=== PATIENT | female | born 1975 | race Caucasian/White ===

== ENCOUNTER 2017-04-29 17:43 | Emergency (ER) | payer MEDICARE ==
[~2017-04-29] VITALS: Ht 167.6 cm; Wt 86.6 kg
--- NOTE | 2017-04-29 18:43 | PHYS DOC ---
Past History Past Medical History: Anxiety, Depression, Renal Failure, Other Past Medical History Fibrmyalgia; migraines Past Surgical History: Appendectomy, Cholecystectomy, Hysterectomy, Other Smoking: Cigarettes Alcohol Use: None Drug Use: None Adult General Chief Complaint Chief Complaint: COUGH HPI HPI Patient is a 42 year old female who presents with cough. She states the cough has been present "for at least a week." She feels "hot and sweaty in my house" but no fever documented. She has had no recent travel. She is disabled due to fibromyalgia and migraines. She noted today 4 watery stools. She has occasional blood in her urine "but I've had that before" but then she noticed some burning today with urination. Her spouse was ill a week prior to her. She has not seen her PCP yet. Review of Systems Review of Systems Constitutional: Feels feverish Eyes: Denies change in visual acuity, redness, or eye pain HENT: Denies nasal congestion or sore throat Respiratory: see HPI Cardiovascular: no chest pain with this episode GI: Denies abdominal pain, nausea, vomiting, bloody stools. Some diarrhea just today : Some dysuria or hematuria Musculoskeletal: Denies back pain or joint pain Integument: Denies rash or skin lesions Neurologic: Denies headache, focal weakness or sensory changes Allergies Allergies Allergies Coded Allergies Type Severity Reaction Last Updated Verified No Known Drug Allergies 11/03/14 No Physical Exam Physical Exam Constitutional: Well developed, well nourished, no acute distress, non-toxic appearance.Heavy smell of tobacco on patient. HENT: Normocephalic, atraumatic, TM clear bilaterally; bilateral external ears normal, oropharynx moist, no oral exudates, nose normal. Eyes: PERRLA, EOMI, conjunctiva normal, no discharge. Neck: Normal range of motion, no tenderness, supple, no stridor. Cardiovascular:Heart rate regular rhythm, no murmur Lungs & Thorax: Bilateral breath sounds clear to auscultation. No rales, rhonchi or wheezing Abdomen: Bowel sounds normal, soft, no tenderness, no masses, no pulsatile masses. Skin: Warm, dry, no erythema, no rash. Back: No tenderness, no CVA tenderness. Extremities: No tenderness, no cyanosis, no clubbing, ROM intact, no edema. Neurologic: Alert and oriented X 3, normal motor function, normal sensory function, no focal deficits noted. Psychologic: Affect normal, judgement normal, mood normal. Current Patient Data Vital Signs Vital Signs Date Time Temp Pulse Resp B/P (MAP) Pulse Ox O2 Delivery O2 Flow Rate FiO2 04/29/17 17:58 97.3 108 18 99 Room Air Lab Results Laboratory Tests Test 04/29/17 18:30 Urine Collection Type Unknown Urine Color Yellow Urine Clarity Hazy Urine pH 7.0 Urine Specific Reliance 1.020 Urine Protein Neg Urine Glucose (UA) Neg mg/dL Urine Ketones (Stick) Neg mg/dL Urine Blood Small Urine Nitrite Neg Urine Bilirubin Neg Urine Urobilinogen Dipstick 1 mg/dL Urine Leukocyte Esterase Neg Urine RBC 3-5 /HPF Urine WBC 1-4 /HPF Urine Squamous Epithelial Cells Many /LPF Urine Bacteria 0 /HPF Urine Mucus Marked /LPF Influenza Type A (Rapid) Negative Influenza Type B (Rapid) Negative Current Medications Medications (Trade) Dose Ordered Sig/Beau Route PRN Reason Start Time Stop Time Status Last Admin Dose Admin Ondansetron HCl (Zofran) 4 mg PRN Q4HRS PRN IV NAUSEA/VOMITING 04/29/17 19:15 04/30/17 19:14 UNV Morphine Sulfate (Morphine 2mg Syringe) 2 mg PRN Q2HR PRN IV PAIN 04/29/17 19:15 04/30/17 19:14 UNV Nitroglycerin (Nitrostat) 0.4 mg PRN Q5MIN PRN SL CHEST PAIN 04/29/17 19:15 04/30/17 19:14 UNV Nitroglycerin (Nitro-Bid Oint) 1 inch Q8HRS TP 04/29/17 22:00 UNV Radiology/Procedures Radiology/Procedures CXR interpreted by myself at 1845 PM: no infiltrates; normal cardiac silhouette ; no pleural effusions; normal vasculature Course & Med Decision Making Course & Med Decision Making Evaluated patient upon my arrival on shift at 1800 PM. At 1930 PM influenza negative and UA unremarkable. No evidence of bacterial infection noted. Appears viral in etiology with the loose stool starting today. Home w Zofran rx. Dragon Disclaimer Dragon Disclaimer This chart was dictated in whole or in part using Voice Recognition software in a busy, high-work load, and often noisy Emergency Department environment. It may contain unintended and wholly unrecognized errors or omissions. Departure Departure: Impression: Primary Impression: Viral syndrome Disposition: HOME, SELF-CARE Condition: GOOD Referrals: ROBBY PERLA MD (PCP) Patient Instructions: Cough, Adult Scripts Ondansetron (ZOFRAN ODT) 8 Mg Tab.rapdis 8 MG PO PRN Q6-8HRS Y for NAUSEA for 7 Days Prov: ELENI OSORIO MD 04/29/17 ELENI OSORIO MD Apr 29, 2017 18:43
[2017-04-29 19:14] LABS: BILIRUBIN,URINE NEG (NEG); CLARITY,URINE HAZY; COLOR,URINE YELLOW; GLUCOSE,URINE NEG (NEG); NITRITE,URINE NEG (NEG); UROBILINOGEN,URINE 1 mg/dL (0.2 mg/dL)
[2017-04-29 19:15] LABS: BACTERIA,URINE 0 /HPF (0-FEW); SQUAMOUS EPITHELIAL CELL,UR MANY /LPF
[2017-04-29] MEDS ORDERED: MORPHINE SULFATE 2 MG/ML DISP.SYRIN. IV PRN (19:15)
[2017-04-29] MEDS ORDERED: ONDANSETRON PF 4 MG/2 ML VIAL. IV PRN (19:15)
[2017-04-29] MEDS ORDERED: NITROGLYCERIN SUBLINGUAL 0.4 MG BOTTLE OF 25. SL PRN (19:15)
[2017-04-29 19:21] LABS: INFLUENZA A PATIENT NEGATIVE (NEGATIVE); INFLUENZA B PATIENT NEGATIVE (NEGATIVE)
[2017-04-29] MEDS ORDERED: ONDA8TAB12 PO (19:39)
[2017-04-29 19:45] VITALS: BP 138/66
[2017-04-29] MEDS ORDERED: NITROGLYCERIN OINT 1 GM PACKET. TP SCH (22:00)
--- NOTE | 2017-04-30 08:25 | RAD ---
Indication cough. Frontal and lateral views of the chest were obtained. Comparison is made to a single view examination 11/28/2010. The heart and pulmonary vessels appear normal. The mediastinum has a normal appearance. The lungs are clear. There is no pleural fluid or pneumothorax. A significant change compared to the prior exam is not seen. IMPRESSION: No acute or focal process. No significant change
== END 2017-04-29 19:45 | disposition home or self-care (01) ==
LOC: ER 17:43
DX: B34.9 Viral infection, unspecified (principal); R31.9 Hematuria, unspecified; M79.7 Fibromyalgia; G43.909 Migraine, unspecified, not intractable, without status migrainosus; F17.210 Nicotine dependence, cigarettes, uncomplicated; N19 Unspecified kidney failure
CPT/HCPCS: 71020; 81001; 87804; 99284; 99285

== ENCOUNTER 2018-01-11 10:26 | Inpatient (IN) | payer MEDICARE ==
[~2018-01-11] VITALS: Ht 167.6 cm; Wt 85.7 kg
[~2018-01-11 10:26] MED LIST: ONDA8TAB12 PO
[2018-01-11] MEDS ORDERED: IV NORMAL SALINE 1,000ML 1,000 ML IV SCH ×2 (11:12→12:27)
[2018-01-11] MEDS ORDERED: 0.9 % SODIUM CHLORIDE 10 ML DISP.SYRIN. IV PRN (11:15)
[2018-01-11] MEDS ORDERED: ONDANSETRON PF 4 MG/2 ML VIAL. IV ONE (11:30)
[2018-01-11 11:37] LABS: BASO # 0.1 x10^3/uL (0.0-0.2); BASO % 0 % (0-3); EOS % 0 % (0-3); HEMATOCRIT 49.8 % (36.0-47.0); HEMOGLOBIN 16.9 g/dL (12.0-15.5); LYMPH # 2.3 x10^3/uL (1.0-4.8); LYMPH % 11 % (24-48); MEAN CORPUSCULAR HEMOGLOBIN 27 pg (25-35); MEAN CORPUSCULAR HGB CONC 34 g/dL (31-37); MEAN CORPUSCULAR VOLUME 79 fL (79-100); MONO # 0.6 x10^3/uL (0.0-1.1); MONO % 3 % (0-9); NEUT # 17.4 x10^3uL (1.8-7.7); NEUT % 86 % (31-73); PLATELET COUNT 476 x10^3/uL (140-400); RED BLOOD COUNT 6.27 x10^6/uL (3.50-5.40); RED CELL DISTRIBUTION WIDTH 16.1 % (11.5-14.5); WHITE BLOOD COUNT 20.3 x10^3/uL (4.0-11.0)
[2018-01-11 11:52] LABS: ALBUMIN/GLOBULIN RATIO 0.7 (1.0-1.7); CALCIUM 10.3 mg/dL (8.5-10.1); CREATININE 1.2 mg/dL (0.6-1.0); GFR 49.3; TOTAL BILIRUBIN 0.4 mg/dL (0.2-1.0); TOTAL PROTEIN 9.4 g/dL (6.4-8.2)
[2018-01-11 11:55] LABS: POTASSIUM 2.9 mmol/L (3.5-5.1)
[2018-01-11 12:11] LABS: % BANDS 4 % (0-9); % BASOS 1 % (0-3); % EOS 0 % (0-5); % LYMPHS 15 % (24-48); % MONOS 1 % (0-10); % SEGS 79 % (35-66); PLT ESTIMATE INCREASED (ADEQUATE)
[2018-01-11] MEDS ORDERED: MORPHINE SULFATE 4 MG/ML DISP.SYRIN. IV ONE (12:15)
[2018-01-11] MEDS ORDERED: ZOLP5TAB5 PO (12:19)
[2018-01-11] MEDS ORDERED: ZOLP10TA4 PO (12:19)
[2018-01-11] MEDS ORDERED: TIZA4TAB PO (12:20)
[2018-01-11] MEDS ORDERED: CYCL-331 PO (12:21)
[2018-01-11] MEDS ORDERED: SUMA100T3 PO (12:22)
--- NOTE | 2018-01-11 12:27 | PHYS DOC ---
Past History Past Medical History: Anxiety, Depression, Renal Failure, Other Past Surgical History: Appendectomy, Cholecystectomy, Hysterectomy, Other Smoking: Cigarettes Alcohol Use: None Drug Use: None Adult General Chief Complaint Chief Complaint: DIARRHEA HPI HPI 42-year-old female patient states she ate ice cream yesterday afternoon and since last night had more than 50 episodes of watery diarrhea. Patient states she had 3 episodes of vomiting today and complaining of epigastric cramping pain radiation to her back and rated her pain 6/10. Patient states she was not able to urinate and just episodes of diarrhea. Patient states she had the same problem previously with diagnoses of C Diff but denies taking antibiotics for the last several months. She denies fever and chills and sick contact. Review of Systems Review of Systems Constitutional: Denies fever or chills [] Eyes: Denies change in visual acuity, redness, or eye pain [] HENT: Denies nasal congestion or sore throat [] Respiratory: Denies cough or shortness of breath [] Cardiovascular: No additional information not addressed in HPI [] GI: Reports abdominal pain, nausea, vomiting, diarrhea [] : Denies dysuria or hematuria [] Musculoskeletal: Denies back pain or joint pain [] Integument: Denies rash or skin lesions [] Neurologic: Denies headache, focal weakness or sensory changes [] Endocrine: Denies polyuria or polydipsia [] All other systems were reviewed and found to be within normal limits, except as documented in this note. Current Medications Current Medications Current Medications Medications (Trade) Dose Ordered Sig/Beau Start Time Stop Time Status Last Admin Dose Admin Morphine Sulfate (Morphine 4mg Syringe) 4 mg 1X ONCE 01/11/18 12:15 01/11/18 12:16 DC 01/11/18 12:05 4 MG Ondansetron HCl (Zofran) 4 mg 1X ONCE 01/11/18 11:30 01/11/18 11:31 DC 01/11/18 11:25 4 MG Sodium Chloride 1,000 ml @ 1,000 mls/hr 1X ONCE 01/11/18 12:30 01/11/18 13:29 Sodium Chloride (Normal Saline Flush) 10 ml QSHIFT PRN 01/11/18 11:15 Allergies Allergies Allergies Coded Allergies Type Severity Reaction Last Updated Verified No Known Drug Allergies 11/03/14 No Physical Exam Physical Exam Constitutional: Moderate distress, non-toxic appearance, anxious. [] HENT: Normocephalic, atraumatic, bilateral external ears normal, oropharynx moist, no oral exudates, nose normal. [] Eyes: PERRLA, EOMI, conjunctiva normal, no discharge. [] Neck: Normal range of motion, no tenderness, supple, no stridor. [] Cardiovascular: Tachycardia, no murmur [] Lungs & Thorax: Bilateral breath sounds clear to auscultation [] Abdomen: Bowel sounds normal, soft, no tenderness, no masses, no pulsatile masses. [] Skin: Warm, dry, no erythema, no rash. [] Back: No tenderness, no CVA tenderness. [] Extremities: No tenderness, no cyanosis, no clubbing, ROM intact, no edema. [] Neurologic: Alert and oriented X 3, normal motor function, normal sensory function, no focal deficits noted. [] Psychologic: anxiousl, judgement normal, mood normal. [] Current Patient Data Vital Signs Vital Signs Date Time Temp Pulse Resp B/P (MAP) Pulse Ox O2 Delivery O2 Flow Rate FiO2 01/11/18 12:05 16 99 Room Air 01/11/18 10:33 98.0 105 Lab Results Laboratory Tests Test 01/11/18 11:15 White Blood Count 20.3 x10^3/uL (4.0-11.0) H Red Blood Count 6.27 x10^6/uL (3.50-5.40) H Hemoglobin 16.9 g/dL (12.0-15.5) H Hematocrit 49.8 % (36.0-47.0) H Mean Corpuscular Volume 79 fL (79-100) Mean Corpuscular Hemoglobin 27 pg (25-35) Mean Corpuscular Hemoglobin Concent 34 g/dL (31-37) Red Cell Distribution Width 16.1 % (11.5-14.5) H Platelet Count 476 x10^3/uL (140-400) H Neutrophils (%) (Auto) 86 % (31-73) H Lymphocytes (%) (Auto) 11 % (24-48) L Monocytes (%) (Auto) 3 % (0-9) Eosinophils (%) (Auto) 0 % (0-3) Basophils (%) (Auto) 0 % (0-3) Neutrophils # (Auto) 17.4 x10^3uL (1.8-7.7) H Lymphocytes # (Auto) 2.3 x10^3/uL (1.0-4.8) Monocytes # (Auto) 0.6 x10^3/uL (0.0-1.1) Eosinophils # (Auto) 0.0 x10^3/uL (0.0-0.7) Basophils # (Auto) 0.1 x10^3/uL (0.0-0.2) Segmented Neutrophils % 79 % (35-66) H Band Neutrophils % 4 % (0-9) Lymphocytes % 15 % (24-48) L Monocytes % 1 % (0-10) Eosinophils % 0 % (0-5) Basophils % 1 % (0-3) Platelet Estimate Increased (ADEQUATE) Sodium Level 139 mmol/L (136-145) Potassium Level 2.9 mmol/L (3.5-5.1) *L Chloride Level 102 mmol/L (98-107) Carbon Dioxide Level 20 mmol/L (21-32) L Anion Gap 17 (6-14) H Blood Urea Nitrogen 9 mg/dL (7-20) Creatinine 1.2 mg/dL (0.6-1.0) H Estimated GFR (Cockcroft-Gault) 49.3 BUN/Creatinine Ratio 8 (6-20) Glucose Level 170 mg/dL (70-99) H Calcium Level 10.3 mg/dL (8.5-10.1) H Total Bilirubin 0.4 mg/dL (0.2-1.0) Aspartate Amino Transferase (AST) 45 U/L (15-37) H Alanine Aminotransferase (ALT) 67 U/L (14-59) H Alkaline Phosphatase 194 U/L (46-116) H Total Protein 9.4 g/dL (6.4-8.2) H Albumin 4.0 g/dL (3.4-5.0) Albumin/Globulin Ratio 0.7 (1.0-1.7) L Lipase 139 U/L (73-393) EKG EKG [] Radiology/Procedures Radiology/Procedures [] [address] [address] IMAGING REPORT Signed PATIENT: AHMET FERNANDES Annelise ACCOUNT: [id number] : 1975 LOCATION: ICU AGE: 42 SEX: F EXAM STATUS: ADM IN ORD. PHYSICIAN: TRISTAN SPANN MD REASON: intractable nausea and vomiting PROCEDURE: CT ABD PELV W/ IV CONTRST ONLY CT abdomen and pelvis with contrast History: Mid abdominal pain, vomiting and nausea. Technique: Helical CT imaging of the abdomen and pelvis acquired with 60 mL Omnipaque 300 intravenous contrast. Comparison: CT abdomen and pelvis December 26, 2010. Abdomen findings: Mild hypodensity of the liver could indicate fatty infiltration. Cholecystectomy. Nonspecific subcentimeter right renal midpole medullary hypodensity too small to characterize statistically most likely a cyst. Left kidney, adrenals, spleen and pancreas are unremarkable. Mild prominent beatrice hepatis lymph nodes although these are stable in size to the prior exam and are not enlarged with short axis diameters of less than 1 cm. The proximal jejunum at the upper abdomen is segmentally more dilated to without inflammatory change evident with a maximum diameter of up to 3.3 cm, no focal transition point is evident although the distal small bowel has a diameter on average of 1.5 cm. Appendectomy. No abdominal fluid or adenopathy. Lung bases and bones are unremarkable. Pelvis findings: Hysterectomy. Ovaries absent. Bladder, rectum and bones are unremarkable. No fluid or adenopathy. Lucent lesion left lateral subcapital femoral neck/femoral head junction new from the prior exam likely a small subcortical cyst or synovial herniation with mild adjacent acetabulum osteophyte. Impression: 1. Mild segmental distention of the jejunum at the upper abdomen without a focal transition point. This may represent a mild ileus due to a low-grade enteritis although no inflammatory changes are directly evident. A low-grade small bowel obstruction would be a secondary consideration. 2. Appendectomy. DICTATED AND SIGNED BY: MARTÍN ADAMS MD DATE: 01/11/18 1325 Course & Med Decision Making Course & Med Decision Making Pertinent Labs and Imaging studies reviewed. (See chart for details) Evolution of patient in ER showed 42-year-old female patient with complaining of very frequent episodes of diarrhea since last night with few episode of vomiting. Patient had moderate diarrhea several times while she was in ER. Patient had stable vital signs except for tachycardia. Patient did not have fever or confusion. Patient had white count of 20,000 and elevation of liver function tests and anion gap. CT abdomen and pelvis showed ileus without obstruction. Patient treated with 2 L of IV fluid in ER and IV potassium wasn't started because of potassium of 2.9. Patient did not have episodes of vomiting while she was in ER. Dr Ariza accepted admission at 1218. Dragon Disclaimer Dragon Disclaimer This electronic medical record was generated, in whole or in part, using a voice recognition dictation system. Departure Departure: Impression: Primary Impression: Intractable diarrhea Additional Impressions: Gastroenteritis Hypokalemia Leukocytosis Abnormal liver function tests Dehydration Anxiety Disposition: 09 ADMITTED INPATIENT (at 1218) Condition: GUARDED Referrals: ROBBY PERLA MD (PCP) Critical Care Time Critical care time was [80] minutes exclusive of procedures. Problem Qualifiers TRISTAN SPANN MD Jan 11, 2018 12:26
[2018-01-11] MEDS ORDERED: ESCITALOPRAM OX10 MG PO (12:29)
[2018-01-11] MEDS ORDERED: TOPI100T42 PO (12:30)
[2018-01-11] MEDS ORDERED: CLON1TAB3 PO (12:30)
[2018-01-11] MEDS ORDERED: IV NORMAL SALINE 1,000ML 1,000 ML IV ONE (12:30)
[2018-01-11] MEDS ORDERED: POTASSIUM CL 40MEQ IN 0.9%NACL 1,000 ML IV ONE (12:30)
[2018-01-11] MEDS ORDERED: AMIT100T PO (12:31)
[2018-01-11] MEDS ORDERED: LEVO100T5 PO (12:32)
[2018-01-11] MEDS ORDERED: QUET100T4 PO (12:32)
[2018-01-11] MEDS ORDERED: PROM25TA10 PO (12:32)
[2018-01-11] MEDS ORDERED: MORP30TA PO (12:33)
[2018-01-11] MEDS ORDERED: IOHEXOL 300 MG/ML 75 ML VIAL. IV ONE (12:45)
[2018-01-11] MEDS ORDERED: CONTRAST GIVEN MC PRN (12:45)
[2018-01-11 13:01] LABS: AMPHETAMINE/METHAMPHETAMINE NEG (NEG); BARBITURATES NEG (NEG); BENZODIAZEPINES POS (NEG); CANNABINOIDS NEG (NEG); COCAINE NEG (NEG); METHADONE NEG (NEG); OPIATES POS (NEG); PHENCYCLIDINE NEG (NEG)
[2018-01-11 13:03] LABS: BILIRUBIN,URINE MOD (NEG); CLARITY,URINE CLOUDY; COLOR,URINE AMBER; GLUCOSE,URINE NEG (NEG)
[2018-01-11 13:04] LABS: AMORPHOUS SEDIMENT,UR PRESENT /HPF; BACTERIA,URINE FEW /HPF (0-FEW); HYALINE CASTS, URINE MANY /HPF; NITRITE,URINE NEG (NEG); SQUAMOUS EPITHELIAL CELL,UR MANY /LPF; UROBILINOGEN,URINE 0.2 mg/dL (0.2 mg/dL)
--- NOTE | 2018-01-11 13:37 | RAD ---
CT abdomen and pelvis with contrast History: Mid abdominal pain, vomiting and nausea. Technique: Helical CT imaging of the abdomen and pelvis acquired with 60 mL Omnipaque 300 intravenous contrast. Comparison: CT abdomen and pelvis December 26, 2010. Abdomen findings: Mild hypodensity of the liver could indicate fatty infiltration. Cholecystectomy. Nonspecific subcentimeter right renal midpole medullary hypodensity too small to characterize statistically most likely a cyst. Left kidney, adrenals, spleen and pancreas are unremarkable. Mild prominent beatrice hepatis lymph nodes although these are stable in size to the prior exam and are not enlarged with short axis diameters of less than 1 cm. The proximal jejunum at the upper abdomen is segmentally more dilated to without inflammatory change evident with a maximum diameter of up to 3.3 cm, no focal transition point is evident although the distal small bowel has a diameter on average of 1.5 cm. Appendectomy. No abdominal fluid or adenopathy. Lung bases and bones are unremarkable. Pelvis findings: Hysterectomy. Ovaries absent. Bladder, rectum and bones are unremarkable. No fluid or adenopathy. Lucent lesion left lateral subcapital femoral neck/femoral head junction new from the prior exam likely a small subcortical cyst or synovial herniation with mild adjacent acetabulum osteophyte. Impression: 1. Mild segmental distention of the jejunum at the upper abdomen without a focal transition point. This may represent a mild ileus due to a low-grade enteritis although no inflammatory changes are directly evident. A low-grade small bowel obstruction would be a secondary consideration. 2. Appendectomy.
[2018-01-11 13:45] VITALS: BP 105/65
[2018-01-11] MEDS ORDERED: SUMAtriptan SUCCINATE 50 MG TABLET PO PRN (15:45)
[2018-01-11] MEDS: ONDANSETRON PF 4 MG/2 ML VIAL. IV PRN ×3 (17:03→23:51)
[2018-01-11 18:25] VITALS: BP 135/73
[2018-01-11] MEDS: tiZANidine 4 MG TABLET. PO SCH (20:32)
[2018-01-11] MEDS: CYCLOBENZAPRINE 10 MG TABLET. PO SCH (20:32)
[2018-01-11] MEDS: CITALOPRAM 20 MG TABLET. PO SCH ×2 (20:32→20:43)
[2018-01-11] MEDS: clonazePAM 1 MG TABLET PO SCH (20:32)
[2018-01-11] MEDS: LEVOTHYROXINE 100 MCG TABLET PO SCH (20:32)
[2018-01-11] MEDS: QUEtiapine 100 MG TABLET. PO SCH (20:32)
[2018-01-11] MEDS: TOPIRAMATE 100 MG TABLET. PO SCH (20:32)
[2018-01-11] MEDS: MORPHINE ER 30 MG TABLET.ER PO SCH (20:33)
[2018-01-11] MEDS: ZOLPIDEM 5 MG TABLET. PO SCH (20:34)
[2018-01-11] MEDS: AMITRIPTYLINE HCL 100 MG TABLET PO SCH (20:34)
[2018-01-11] MEDS ORDERED: ZOLPIDEM TARTRATE PO SCH (21:00)
[2018-01-11] MEDS ORDERED: HYDROmorphone PF 2 MG/ML VIAL IV PRN (21:00)
[2018-01-11] MEDS: PIPERACILLIN/TAZOBACTAM 3.375 GM in IV NORMAL SALINE 50ML 50 ML IV SCH (21:38)
[2018-01-11] MEDS: POTASSIUM CL 40MEQ IN 0.9%NACL 1,000 ML IV SCH (21:52)
[2018-01-12] MEDS: PIPERACILLIN/TAZOBACTAM 3.375 GM in IV NORMAL SALINE 50ML 50 ML IV SCH ×3 (06:24→21:58)
[2018-01-12] MEDS: ONDANSETRON PF 4 MG/2 ML VIAL. IV PRN (06:25)
[2018-01-12 06:34] VITALS: BP 106/51
[2018-01-12 06:49] LABS: BASO # 0.6 x10^3/uL (0.0-0.2); BASO % 4 % (0-3); EOS # 0.5 x10^3/uL (0.0-0.7); EOS % 3 % (0-3); HEMATOCRIT 41.1 % (36.0-47.0); HEMOGLOBIN 13.6 g/dL (12.0-15.5); LYMPH # 5.4 x10^3/uL (1.0-4.8); LYMPH % 34 % (24-48); MEAN CORPUSCULAR HEMOGLOBIN 27 pg (25-35); MEAN CORPUSCULAR HGB CONC 33 g/dL (31-37); MEAN CORPUSCULAR VOLUME 83 fL (79-100); MONO # 1.1 x10^3/uL (0.0-1.1); MONO % 7 % (0-9); NEUT # 8.2 x10^3uL (1.8-7.7); NEUT % 52 % (31-73); PLATELET COUNT 340 x10^3/uL (140-400); RED BLOOD COUNT 4.99 x10^6/uL (3.50-5.40); RED CELL DISTRIBUTION WIDTH 16.2 % (11.5-14.5); WHITE BLOOD COUNT 15.9 x10^3/uL (4.0-11.0)
[2018-01-12 06:56] LABS: ALBUMIN 2.9 g/dL (3.4-5.0); ALBUMIN/GLOBULIN RATIO 0.7 (1.0-1.7); CALCIUM 8.4 mg/dL (8.5-10.1); CREATININE 1.1 mg/dL (0.6-1.0); GFR 54.5; POTASSIUM 3.9 mmol/L (3.5-5.1); TOTAL BILIRUBIN 0.3 mg/dL (0.2-1.0); TOTAL PROTEIN 6.9 g/dL (6.4-8.2)
[2018-01-12] MEDS: LACTOBACILLUS RHAMNOSUS GG 1 CAPSULE. PO SCH ×2 (08:46→19:45)
[2018-01-12] MEDS: clonazePAM 1 MG TABLET PO SCH ×3 (08:46→19:45)
[2018-01-12] MEDS: MORPHINE ER 30 MG TABLET.ER PO SCH ×3 (08:46→19:44)
[2018-01-12] MEDS: tiZANidine 4 MG TABLET. PO SCH ×3 (08:46→19:45)
[2018-01-12] MEDS: PROMETHAZINE 25 MG TABLET. PO PRN ×2 (08:47→16:29)
[2018-01-12] MEDS: POTASSIUM CL 40MEQ IN 0.9%NACL 1,000 ML IV SCH (09:46)
[2018-01-12] MEDS: ONDANSETRON ODT 4 MG TAB.RAPDIS PO PRN ×2 (13:03→19:59)
--- NOTE | 2018-01-12 13:34 | HP ---
ADMIT DATE: 01/12/2018 HISTORY OF PRESENT ILLNESS: The patient is a 42-year-old female patient, who came to the Emergency Room with complaint of recurrent bouts of nausea, vomiting and more than 50 episodes of watery diarrhea according to her after she has eaten ice cream. All this started last Saturday. She also complained of epigastric cramping, pain radiating to her back and rated the pain as 6/10. She stated that she has had similar problem before, was diagnosed with C. diff, but denied any antibiotic for more than a year now. She denied any fever, chills or rigors. She lives with , who did not have any similar symptoms nor her children. She was extensively evaluated in the Emergency Room, was found to have leukocytosis white cell count 20,300. She was also found to have hypokalemia with serum potassium 2.9 and deranged liver enzymes and admitted. She was started on IV fluids as well as IV Zosyn as her CT scan of the abdomen and pelvis showed that she has mild segmental distention of the jejunum, the upper abdomen without focal transition point. PAST MEDICAL HISTORY: Significant for hyperlipidemia, hypothyroidism, fibromyalgia. She has type 2 diabetes and has a previous history of acute kidney injury requiring hemodialysis; however, her kidney function recovered completely. PAST SURGICAL HISTORY: Significant for right carpal tunnel release, cholecystectomy, appendectomy, total abdominal hysterectomy, bilateral salpingo-oophorectomy. ALLERGIES: GABAPENTIN and she has intolerance to NARCOTIC, becomes very nauseous. MEDICATIONS: She is currently on following medications: She is on promethazine 25 mg takes 2 tablets every 6 hours, Flexeril 10 mg at bedtime, tizanidine 2 mg 3 times a day, morphine sulfate 30 mg she takes 2 tablets 3 times a day, clonazepam 1 mg 3 times a day, topiramate 100 mg at bedtime, amitriptyline 100 mg at bedtime, escitalopram oxalate 10 mg at bedtime. She is on quetiapine fumarate for Seroquel 100 mg at bedtime, Ambien half a tablet at bedtime. She is on sumatriptan succinate for Imitrex 100 mg once a day, ondansetron 8 mg hours and she is on levothyroxine 100 mcg once a day. FAMILY HISTORY: She has one brother, who is a serious drug user according to her. Her father is still alive at the age of 67 and he is alcoholic and her mother is alive at age of 63 and also she is alcoholic. SOCIAL HISTORY: She is . She has 2 sons. She smokes 2 packs per day. She does not drink alcohol or use any drugs. She is currently disabled. REVIEW OF SYSTEMS: The patient denied any blurring of vision, cataract, glaucoma or macular degeneration. Denied any earache, tinnitus or sensorineural deafness. Denied any nosebleeds, stuffy nose or postnasal drip. Denied any sore throat, sore tongue, toothache, hoarseness of voice or difficulty swallowing. She did complain of nausea, vomiting, diarrhea, but no constipation. Denied any hematemesis, melena or hematochezia. Denied any dysuria, frequency or hematuria. Denied any chest pain, shortness of breath, orthopnea, or paroxysmal dyspnea. She denied any cough, phlegm or hemoptysis. She did complain of dizziness or lightheadedness. PHYSICAL EXAMINATION: GENERAL: On arrival to the Emergency Room, she looked pale, no jaundice, cyanosis, or thyromegaly. No jugular venous distension. No limb edema. VITAL SIGNS: Her heart rate was 105, blood pressure was 137/78, temperature was 98, respiratory rate was 16, and oxygen saturation was 96% on room air. HEAD, EYES, EARS, NOSE AND THROAT: Showed normocephalic, atraumatic. NECK: Supple. HEART: Showed normal first and second heart sounds with no gallop, rub or murmur. CHEST: Clear to auscultation. No crepitation or rhonchi. ABDOMEN: Distended, soft, diffuse, mild tenderness. No guarding or rigidity. No organomegaly. All hernial orifice intact. Bowel sounds normal. NEUROLOGIC: She was awake, alert, responding appropriately. All cranial nerves intact. EXTREMITIES: She moves extremities without difficulty. She ambulates without assistance or assistive devices. LABORATORY DATA: On arrival to the Emergency Room showed that her serum sodium was 139, potassium 2.9, chloride 102, bicarbonate 20, anion gap of 17, BUN 9, creatinine 1.2. Her estimated GFR was 49 mL per minute. Her glucose 170. Lactic acid was 2.1, calcium was 10.3. Total bilirubin is normal; however, AST, ALT, alkaline phosphatase are all elevated. Her total protein was high at 9.4 and serum albumin was 4. Serum lipase was only 139. Her white cell count was 20,300, hemoglobin 17, hematocrit 50, MCV 79 and platelet count of . Urinalysis showed the urine was yellow, sabino, cloudy with a pH of 5.5, specific gravity of 1025. There is more than 100 mg of protein. The urine was negative for glucose. There was trace of ketones, moderate amount of blood, negative for nitrites and moderate amount of bilirubin. However, the urine was negative for any leukocyte esterase with 1-2 rbc's, 1-4 wbc's, very few bacteria. Her toxic screen was positive for opiates as well as benzodiazepine, but negative for methadone, barbiturates, phencyclidine, amphetamine, methamphetamine, cocaine, cannabinoids and methyl alcohol. The patient was admitted and was continued on IV fluid with potassium as well as IV Zosyn. Stool was sent for culture and sensitivity as well as C. diff toxins. CHRISTY MCLEOD MD DR: ELIZABETH/janeth JOB#: [id number] / [id number]
[2018-01-12] MEDS: IV DEXTROSE 5 %-0.45 % NACL 1,000 ML IV SCH (13:43)
[2018-01-12] MEDS: POTASSIUM CHLORIDE 20 MEQ TABLET.ER. PO SCH ×2 (13:47→19:45)
[2018-01-12 15:54] VITALS: BP 120/60
[2018-01-12 19:19] VITALS: BP 95/56
[2018-01-12] MEDS: ZOLPIDEM 5 MG TABLET. PO SCH (19:44)
[2018-01-12] MEDS: TOPIRAMATE 100 MG TABLET. PO SCH (19:45)
[2018-01-12] MEDS: QUEtiapine 100 MG TABLET. PO SCH (19:45)
[2018-01-12] MEDS: AMITRIPTYLINE HCL 100 MG TABLET PO SCH (19:46)
[2018-01-12] MEDS: CITALOPRAM 20 MG TABLET. PO SCH (19:46)
[2018-01-12] MEDS: LEVOTHYROXINE 100 MCG TABLET PO SCH (19:46)
[2018-01-12] MEDS: CYCLOBENZAPRINE 10 MG TABLET. PO SCH (19:46)
--- NOTE | 2018-01-12 22:41 | PN ---
DATE: 01/12/2018 SUBJECTIVE: The patient is resting slightly propped up in bed, no apparent distress. She continued to complain of abdominal pain. She continued to have nausea, but no vomiting. She has 1 episode of diarrhea. OBJECTIVE: GENERAL: When I examined her, she looked well and was clearly in no apparent respiratory distress, no pallor, jaundice or cyanosis. No lymphadenopathy, no thyromegaly. No jugular venous distension. No lower limb edema. VITAL SIGNS: Her heart rate was 70, blood pressure 106/51, temperature was 98, respiratory rate was 18 and oxygen saturation was 99% on room air. HEAD, EYES, EARS, NOSE AND THROAT: Normocephalic, atraumatic. NECK: Supple. HEART: Showed normal first and second heart sounds with no gallop, rub or murmur. CHEST: Clear to auscultation. No crepitation or rhonchi. ABDOMEN: Distended, soft, nontender. Cannot appreciate any tenderness. No guarding or rigidity. No organomegaly. Hernial orifices intact. Bowel sounds normal. NEUROLOGIC: She is awake, alert, responding appropriately. Cranial nerves intact. She moves extremities without difficulty. Her intake over the last 24 hours was 1500, no output was recorded. LABORATORY DATA: This morning, her white cell count is down to 15,900, hemoglobin 13, hematocrit 41, MCV 84 and platelet count of 340,000. Her chemistry showed a serum sodium of 145, potassium 3.9, chloride 111, bicarbonate 24, anion gap of 10, BUN 9, creatinine 1.1, MCV was 54 and her glucose was 110, calcium was 8.4. Total bilirubin, AST, ALT, alkaline phosphatase were normal. Her total protein was 6.9, albumin was 2.9. ASSESSMENT: In summary, this is a 42-year-old female patient, who came in with severe gastroenteritis, dehydration, marked leukocytosis, and severe hypokalemia as well as acute kidney injury. Creatinine was 1.2. She has also deranged liver enzymes with all the AST, ALT, and alkaline phosphatase are elevated. PLAN: My plan is to continue with IV fluid, continue with IV Zosyn. Await the result of the stool culture and sensitivity as well as C. diff toxins. She can start on a clear liquid diet and advance as tolerated. CHRISTY MCLEOD MD DR: Yashira JOB#: [id number] / [id number]
[2018-01-13 00:19] VITALS: BP 92/54
[2018-01-13] MEDS: ONDANSETRON ODT 4 MG TAB.RAPDIS PO PRN (05:54)
[2018-01-13] MEDS: PIPERACILLIN/TAZOBACTAM 3.375 GM in IV NORMAL SALINE 50ML 50 ML IV SCH (05:54)
[2018-01-13 06:09] VITALS: BP 100/64
[2018-01-13 06:09] LABS: ALBUMIN 2.6 g/dL (3.4-5.0); ALBUMIN/GLOBULIN RATIO 0.7 (1.0-1.7); BASO # 0.1 x10^3/uL (0.0-0.2); BASO % 1 % (0-3); CALCIUM 8.3 mg/dL (8.5-10.1); CREATININE 1.1 mg/dL (0.6-1.0); EOS # 0.3 x10^3/uL (0.0-0.7); EOS % 3 % (0-3); GFR 54.5; HEMATOCRIT 36.8 % (36.0-47.0); HEMOGLOBIN 12.1 g/dL (12.0-15.5); LYMPH # 4.7 x10^3/uL (1.0-4.8); LYMPH % 46 % (24-48); MAGNESIUM 2.1 mg/dL (1.8-2.4); MEAN CORPUSCULAR HEMOGLOBIN 27 pg (25-35); MEAN CORPUSCULAR HGB CONC 33 g/dL (31-37); MEAN CORPUSCULAR VOLUME 81 fL (79-100); MONO # 0.7 x10^3/uL (0.0-1.1); MONO % 7 % (0-9); NEUT # 4.4 x10^3uL (1.8-7.7); NEUT % 43 % (31-73); PLATELET COUNT 300 x10^3/uL (140-400); POTASSIUM 3.7 mmol/L (3.5-5.1); RED BLOOD COUNT 4.52 x10^6/uL (3.50-5.40); RED CELL DISTRIBUTION WIDTH 16.3 % (11.5-14.5); TOTAL BILIRUBIN 0.2 mg/dL (0.2-1.0); TOTAL PROTEIN 6.2 g/dL (6.4-8.2); WHITE BLOOD COUNT 10.2 x10^3/uL (4.0-11.0)
[2018-01-13] MEDS: IV DEXTROSE 5 %-0.45 % NACL 1,000 ML IV SCH (08:04)
[2018-01-13] MEDS: tiZANidine 4 MG TABLET. PO SCH (08:39)
[2018-01-13] MEDS: POTASSIUM CHLORIDE 20 MEQ TABLET.ER. PO SCH (08:39)
[2018-01-13] MEDS: LACTOBACILLUS RHAMNOSUS GG 1 CAPSULE. PO SCH (08:39)
[2018-01-13] MEDS: MORPHINE ER 30 MG TABLET.ER PO SCH (08:39)
[2018-01-13] MEDS: clonazePAM 1 MG TABLET PO SCH (08:39)
[2018-01-13 08:51] LABS: % BANDS 1 % (0-9); % EOS 4 % (0-5); % LYMPHS 50 % (24-48); % MONOS 1 % (0-10); % SEGS 43 % (35-66); PLT ESTIMATE ADEQUATE (ADEQUATE)
[2018-01-13 08:52] LABS: POLYCHROMASIA SLIGHT
[2018-01-13 08:53] LABS: TOXIC GRANULATION SLIGHT
[2018-01-13 08:54] LABS: % ATYL 1 % (0-0)
[2018-01-13 10:21] VITALS: BP 99/66
[2018-01-13] MEDS: PROMETHAZINE 25 MG TABLET. PO PRN (10:22)
[2018-01-13] MEDS ORDERED: CIPR500T94 PO (12:26)
[2018-01-13] MEDS ORDERED: METR250T11 PO (12:26)
--- NOTE | 2018-01-13 19:18 | DS ---
DATE OF DISCHARGE: 01/13/2018 HOSPITAL COURSE: The patient is a 42-year-old female patient who was admitted on 01/12/2018 with a complaint of recurrent bouts of nausea, vomiting more than 50 episodes of watery diarrhea according to her after she has eaten ice cream. She also complained of epigastric cramping pain radiating to the back and rated the pain about 6/10 in severity. She said she has had similar problems before, was diagnosed with C. diff colitis, but denied any antibiotic treatment for more than a year now. Denied any chills, rigors, or fever. She lives with who did not have any similar symptoms as well as nor her children. She was extensively investigated in the Emergency Room, was found to have marked leukocytosis with a white cell count of 20,000. She was also found to be hypokalemic with serum potassium 2.9 and has markedly deranged liver enzymes. She was started on IV fluid and IV Zosyn. CT scan of the abdomen and pelvis showed that she has mild segmental distention of the jejunum. She did very well. Her diarrhea has largely subsided. Her white cell count came down nicely from 20,000 to 10,000. Liver enzymes are completely normalized. Her serum potassium has normalized, and her kidney function also has improved and a decision was made to discharge her home to continue the course of treatment as an outpatient in the form of Cipro and Flagyl. PHYSICAL EXAMINATION: GENERAL: When I saw her this afternoon, she was sitting on the edge of the bed comfortably in no apparent respiratory distress. She was pale. No jaundice, cyanosis, or thyromegaly. No jugular venous distension. No limb edema. VITAL SIGNS: Her heart rate was 74, blood pressure was 99/66, temperature was 98.5, respiratory rate was 16 and oxygen saturation was 94% on room air. HEAD, EYES, EARS, NOSE AND THROAT: Normocephalic, atraumatic. NECK: Supple. HEART: Showed normal first and second heart sounds with no gallop, rub or murmur. CHEST: Clear to auscultation. No crepitation or rhonchi. ABDOMEN: Distended, soft, nontender. No guarding or rigidity. No organomegaly. All hernial orifices intact. Bowel sounds normal. NEUROLOGIC: She is awake, alert, responding appropriately. Cranial nerves intact. EXTREMITIES: She moves extremities without difficulty. She ambulates without assistance or assistive devices. LABORATORY DATA: White cell count was 10,200, hemoglobin 12, hematocrit 36, MCV 81 and platelet count of 300,000. Her chemistry this morning showed a serum sodium 143, potassium 3.7, chloride 110, bicarbonate 27, anion gap of 6, BUN 8, creatinine 1.1, estimated GFR was 55 mL per minute. Her glucose 107, calcium was 8.3, magnesium 2.1. Total bilirubin, AST, ALT, alkaline phosphatase were normal. Total protein was 6.2, albumin 2.6. Urinalysis was unremarkable. Tox screen was positive only for opiates. Her stool for C. diff toxins were negative and her nasal screen for MRSA by PCR was negative. Her blood cultures were negative. Stool for culture are still pending at the time of this dictation. DISCHARGE MEDICATIONS: She was discharged home to continue on following medications: Ciprofloxacin 500 mg twice a day and Flagyl 250 mg 3 times a day. Should continue also on amitriptyline 100 mg at bedtime, clonazepam 1 mg 3 times a day, cyclobenzaprine 10 mg at bedtime, Lexapro 10 mg daily, levothyroxine sodium 100 mcg once a day, morphine sulfate 30 mg, she takes 2 tablets 3 times a day, Zofran ODT 8 mg every 6-8 hours, promethazine 25 mg tablet, she takes 2 tablets every 6 hours, quetiapine fumarate for Seroquel 100 mg at bedtime, sumatriptan succinate for Imitrex 100 mg once a day, tizanidine 2 mg 3 times a day, topiramate for Topamax 100 mg at bedtime, Ambien 5 mg, she takes half a tablet at bedtime, and Ambien 10 mg 1 tablet at bedtime. FINAL DISCHARGE DIAGNOSES: 1. Acute gastroenteritis, resolving dehydration. 2. Acute kidney injury. 3. Severe hypokalemia. 4. Deranged liver enzymes, have all resolved. Her stool for Clostridium difficile toxins were negative. The patient is tolerating her diet. She will be discharged to continue treatment as an outpatient in the form of ciprofloxacin 500 mg twice a day and Flagyl 250 mg 3 times a day. The patient was warned not to take her Cipro with other medication that interacts with it like tizanidine, ondansetron. She should take her levothyroxine first thing in the morning. She also was advised to avoid alcohol while she is taking Flagyl. CHRISTY MCLEOD MD DR: ELIZABETH/janeth JOB#: [id number] / [id number]
== END 2018-01-13 13:43 | disposition home or self-care (01) | DRG 871 ==
LOC: ER 10:26 → ICU 13:03 → 1 SOUTH 01-12 15:55
PROVIDERS: ADMIT Internal Medicine; ATTEND Internal Medicine
DX: A41.9 Sepsis, unspecified organism (principal); N17.0 Acute kidney failure with tubular necrosis; K52.9 Noninfective gastroenteritis and colitis, unspecified; E87.6 Hypokalemia; F32.9 Major depressive disorder, single episode, unspecified; E03.9 Hypothyroidism, unspecified; E11.9 Type 2 diabetes mellitus without complications; E78.5 Hyperlipidemia, unspecified; E86.0 Dehydration; F17.210 Nicotine dependence, cigarettes, uncomplicated; F41.9 Anxiety disorder, unspecified; M79.7 Fibromyalgia; Z90.49 Acquired absence of other specified parts of digestive tract; Z90.710 Acquired absence of both cervix and uterus; Z90.722 Acquired absence of ovaries, bilateral; Z88.5 Allergy status to narcotic agent; Z88.8 Allergy status to other drugs, medicaments and biological substances; Z81.3 Family history of other psychoactive substance abuse and dependence; Z81.1 Family history of alcohol abuse and dependence; Z79.899 Other long term (current) drug therapy
CPT/HCPCS: 36415; 74177; 80053; 80307; 81001; 83605; 83690; 83735; 85007; 85025; 87040; 87324; 87641; 96361; 96365; 96375; 99292; J1170; J2270; J2405; J2543; J3010; Q0162; Q0169; Q9967; 99291-25; G0479; J7030

== ENCOUNTER 2018-05-13 18:32 | Emergency (ER) | payer MEDICARE ==
[~2018-05-13] VITALS: Ht 167.6 cm; Wt 78.9 kg
[~2018-05-13 18:32] MED LIST changes: +AMIT100T PO; +CIPR500T94 PO; +CLON1TAB4 PO; +CYCL-331 PO; +ESCITALOPRAM OX10 MG PO; +LEVO100T5 PO; +METR250T11 PO; +MORP30TA PO; +PROM25TA10 PO; +QUET100T4 PO; +SUMA100T3 PO; +TIZA4TAB PO; +TOPI100T42 PO; +ZOLP10TA4 PO; +ZOLP5TAB5 PO
--- NOTE | 2018-05-13 18:51 | ED.ADGEN ---
Past History Past Medical History: Anxiety, Depression, Renal Failure, Other Past Surgical History: Appendectomy, Cholecystectomy, Hysterectomy, Other Smoking: Cigarettes Alcohol Use: None Drug Use: None Adult General Chief Complaint Chief Complaint ".. I ve had diarrhea...".." I went 50 times before coming in...today.. I ve only been eating Ice Cream..." " Milk with my cereal..." HPI HPI Patient is a 43 year old female who presents with above hx and complaints multiple episodes of diarrhea. Patient has had previous episodes of C. difficile. Patient has had previous episodes of abdomen surgery. No recent colonoscopy. Patient's diet recently has consisted only of milk products and ice cream. Patient states she had 50 stools prior to his anything today. Patient has had a past history C. difficile. Patient has not noticed any blood in her stooling. Patient normally follows with Dr. Perales. No recent travel. No history of bad food intake. Patient however produce a significant stool while in the emergency department Review of Systems Review of Systems Constitutional: Denies fever or chills [] Eyes: Denies change in visual acuity, redness, or eye pain [] HENT: Denies nasal congestion or sore throat [] Respiratory: Denies cough or shortness of breath [] Cardiovascular: No additional information not addressed in HPI [] GI: Complains of abdominal pain, nausea, and multiple episodes of brown diarrhea. Denies Vomiting,. : Denies dysuria or hematuria [] Musculoskeletal: Denies back pain or joint pain [] Integument: Denies rash or skin lesions [] Neurologic: Denies headache, focal weakness or sensory changes [] Endocrine: Denies polyuria or polydipsia [] All other systems were reviewed and found to be within normal limits, except as documented in this note. Family History Family History Noncontributory Current Medications Current Medications Current Medications Medications (Trade) Dose Ordered Sig/Beau Start Time Stop Time Status Last Admin Dose Admin Famotidine (Pepcid Vial) 20 mg 1X ONCE 05/13/18 19:45 05/13/18 19:46 DC 05/13/18 20:22 20 MG Lactated Ringer's 1,000 ml @ 1,000 mls/hr 1X ONCE 05/13/18 21:30 05/13/18 22:29 DC 05/13/18 21:30 1,000 MLS/HR Morphine Sulfate (Morphine 10mg Syringe) 10 mg 1X ONCE 05/13/18 20:15 05/13/18 20:24 DC 05/13/18 20:22 10 MG Ondansetron HCl (Zofran) 4 mg 1X ONCE 05/13/18 19:45 05/13/18 19:46 DC 05/13/18 20:22 4 MG Allergies Allergies Allergies Coded Allergies Type Severity Reaction Last Updated Verified gabapentin Allergy Intermediate 01/13/18 Yes Physical Exam Physical Exam Constitutional: Moderate acute distress, non-toxic appearance. [] HENT: Normocephalic, atraumatic, bilateral external ears normal, oropharynx dry , no oral exudates, nose normal. Edentulous Eyes: PERRLA, EOMI, conjunctiva normal, no discharge. [] Neck: Normal range of motion, no tenderness, supple, no stridor. [] Cardiovascular:Heart rate regular rhythm, no murmur [] Lungs & Thorax: Bilateral breath sounds equal at apex on auscultation. Few scattered wheezes. Abdomen: Bowel sounds hyperactive, soft, no tenderness, no masses, no pulsatile masses. Obese. Old surgical scars. Declines rectal at this time. Skin: Warm, dry, no erythema, no rash. Poor turgor Back: No tenderness, no CVA tenderness. [] Extremities: No tenderness, no cyanosis, no clubbing, ROM intact, no edema. [] Neurologic: Alert and oriented X 3, normal motor function, normal sensory function, no focal deficits noted. [] Psychologic: Affect anxious, judgement normal, mood normal. [] Current Patient Data Lab Results Laboratory Tests Test 05/13/18 19:40 05/13/18 21:29 White Blood Count 14.5 x10^3/uL (4.0-11.0) H Red Blood Count 5.93 x10^6/uL (3.50-5.40) H Hemoglobin 15.6 g/dL (12.0-15.5) H Hematocrit 47.2 % (36.0-47.0) H Mean Corpuscular Volume 80 fL (79-100) Mean Corpuscular Hemoglobin 26 pg (25-35) Mean Corpuscular Hemoglobin Concent 33 g/dL (31-37) Red Cell Distribution Width 15.9 % (11.5-14.5) H Platelet Count 358 x10^3/uL (140-400) Neutrophils (%) (Auto) 79 % (31-73) H Lymphocytes (%) (Auto) 16 % (24-48) L Monocytes (%) (Auto) 4 % (0-9) Eosinophils (%) (Auto) 0 % (0-3) Basophils (%) (Auto) 1 % (0-3) Neutrophils # (Auto) 11.5 x10^3uL (1.8-7.7) H Lymphocytes # (Auto) 2.3 x10^3/uL (1.0-4.8) Monocytes # (Auto) 0.6 x10^3/uL (0.0-1.1) Eosinophils # (Auto) 0.0 x10^3/uL (0.0-0.7) Basophils # (Auto) 0.1 x10^3/uL (0.0-0.2) Sodium Level 144 mmol/L (136-145) Potassium Level 3.5 mmol/L (3.5-5.1) Chloride Level 107 mmol/L (98-107) Carbon Dioxide Level 22 mmol/L (21-32) Anion Gap 15 (6-14) H Blood Urea Nitrogen 8 mg/dL (7-20) Creatinine 0.9 mg/dL (0.6-1.0) Estimated GFR (Cockcroft-Gault) 68.3 Glucose Level 124 mg/dL (70-99) H Calcium Level 10.0 mg/dL (8.5-10.1) Urine Collection Type Unknown Urine Color Yellow Urine Clarity Clear Urine pH 7.0 Urine Specific [place] 1.015 Urine Protein Neg (NEG-TRACE) Urine Glucose (UA) Neg mg/dL (NEG) Urine Ketones (Stick) Neg mg/dL (NEG) Urine Blood Small (NEG) Urine Nitrite Neg (NEG) Urine Bilirubin Neg (NEG) Urine Urobilinogen Dipstick 0.2 mg/dL (0.2 mg/dL) Urine Leukocyte Esterase Neg (NEG) Urine RBC 3-5 /HPF (0-2) Urine WBC Rare /HPF (0-4) Urine Squamous Epithelial Cells Occ /LPF Urine Bacteria 0 /HPF (0-FEW) Urine Mucus Mod /LPF EKG EKG [] Radiology/Procedures Radiology/Procedures My interpretation of abdomen film shows nonspecific bowel gas pattern. Clips from previous surgery. No free air under the diaphragm.[] Course & Med Decision Making Course & Med Decision Making Pertinent Labs and Imaging studies reviewed. (See chart for details). Patient to resume a clear fluid diet. Patient did have repeat stool sample for C. difficile. Patient avoid milk products or ice cream for the next 2 days. No solids. Push fruit juices Pt. declines admission at this time. Exhibits [facility] capacity. . [] Final Impression Final Impression 1. Acute on Chronic Diarrhea[] 2. Leukocytosis 3. Elevated Hgb. 4. Elevated ESR 5. Dehydration Dragon Disclaimer Dragon Disclaimer This electronic medical record was generated, in whole or in part, using a voice recognition dictation system. ZANDRA MARKHAM MD May 13, 2018 18:51
[2018-05-13 19:00] VITALS: BP 123/77
[2018-05-13] MEDS ORDERED: IV RINGERS SOLUTION,LACTATED 1,000 ML IV SCH (19:22)
[2018-05-13] MEDS ORDERED: FAMOTIDINE 20 MG/2 ML VIAL IVP ONE (19:45)
[2018-05-13] MEDS ORDERED: ONDANSETRON PF 4 MG/2 ML VIAL. IV ONE (19:45)
[2018-05-13 20:02] LABS: BASO # 0.1 x10^3/uL (0.0-0.2); BASO % 1 % (0-3); EOS % 0 % (0-3); HEMATOCRIT 47.2 % (36.0-47.0); HEMOGLOBIN 15.6 g/dL (12.0-15.5); LYMPH # 2.3 x10^3/uL (1.0-4.8); LYMPH % 16 % (24-48); MEAN CORPUSCULAR HEMOGLOBIN 26 pg (25-35); MEAN CORPUSCULAR HGB CONC 33 g/dL (31-37); MEAN CORPUSCULAR VOLUME 80 fL (79-100); MONO # 0.6 x10^3/uL (0.0-1.1); MONO % 4 % (0-9); NEUT # 11.5 x10^3uL (1.8-7.7); NEUT % 79 % (31-73); PLATELET COUNT 358 x10^3/uL (140-400); RED BLOOD COUNT 5.93 x10^6/uL (3.50-5.40); RED CELL DISTRIBUTION WIDTH 15.9 % (11.5-14.5); WHITE BLOOD COUNT 14.5 x10^3/uL (4.0-11.0)
[2018-05-13 20:08] LABS: CREATININE 0.9 mg/dL (0.6-1.0); GFR 68.3; POTASSIUM 3.5 mmol/L (3.5-5.1)
[2018-05-13] MEDS ORDERED: MORPHINE SULFATE 10 MG/ML SYRINGE. SQ ONE (20:15)
--- NOTE | 2018-05-13 20:40 | RAD ---
Indication: Nausea and diarrhea diffuse abdominal pain TECHNIQUE: AP chest and 2 views of the abdomen and pelvis COMPARISON: None FINDINGS: Heart is normal in size. Lungs are clear. No pneumothorax or pleural effusion. No pneumoperitoneum. No abnormally dilated bowel loops or air-fluid levels. Status post cholecystectomy. No abnormal calcific densities projecting over the kidneys or expected course of the ureters. Visualized bones are within normal limits. IMPRESSION: No evidence of bowel obstruction. Electronically signed by: Teto Chowdary DO (05/13/2018 8:37 PM) [facility]
[2018-05-13] MEDS ORDERED: IV RINGERS SOLUTION,LACTATED 1,000 ML IV ONE ×2 (21:30)
[2018-05-13 21:48] LABS: BACTERIA,URINE 0 /HPF (0-FEW); BILIRUBIN,URINE NEG (NEG); CLARITY,URINE CLEAR; COLOR,URINE YELLOW; GLUCOSE,URINE NEG (NEG); NITRITE,URINE NEG (NEG); SQUAMOUS EPITHELIAL CELL,UR OCC /LPF; UROBILINOGEN,URINE 0.2 mg/dL (0.2 mg/dL); WBC,URINE RARE /HPF (0-4)
[2018-05-14] MEDS ORDERED: DIPH1TAB PO (09:19)
[2018-05-14] MEDS ORDERED: MAGN400T3 PO (09:20)
== END 2018-05-13 23:55 | disposition home or self-care (01) ==
LOC: ER 18:32
DX: K52.9 Noninfective gastroenteritis and colitis, unspecified (principal); D72.829 Elevated white blood cell count, unspecified; E86.0 Dehydration; R70.0 Elevated erythrocyte sedimentation rate; R79.89 Other specified abnormal findings of blood chemistry
CPT/HCPCS: 36415; 74022; 80048; 81001; 85025; 87040; 96361; 96372; 96374; 96375; 99285; J2270; J2405; J7120; S0028

== ENCOUNTER 2018-07-08 15:31 | Emergency (ER) | payer MEDICARE ==
[~2018-07-08] VITALS: Ht 167.6 cm; Wt 78.9 kg
[~2018-07-08 15:31] MED LIST changes: +DIPH1TAB PO; +MAGN400T3 PO
[2018-07-08 16:20] LABS: BASO # 0.2 x10^3/uL (0.0-0.2); BASO % 1 % (0-3); EOS # 0.2 x10^3/uL (0.0-0.7); EOS % 1 % (0-3); HEMATOCRIT 41.4 % (36.0-47.0); HEMOGLOBIN 13.6 g/dL (12.0-15.5); LYMPH % 26 % (24-48); MEAN CORPUSCULAR HEMOGLOBIN 27 pg (25-35); MEAN CORPUSCULAR HGB CONC 33 g/dL (31-37); MEAN CORPUSCULAR VOLUME 82 fL (79-100); MONO # 0.6 x10^3/uL (0.0-1.1); MONO % 4 % (0-9); NEUT # 10.3 x10^3uL (1.8-7.7); NEUT % 67 % (31-73); PLATELET COUNT 300 x10^3/uL (140-400); RED BLOOD COUNT 5.07 x10^6/uL (3.50-5.40); RED CELL DISTRIBUTION WIDTH 15.8 % (11.5-14.5); WHITE BLOOD COUNT 15.3 x10^3/uL (4.0-11.0)
[2018-07-08 16:22] LABS: CALCIUM 8.5 mg/dL (8.5-10.1); CREATININE 0.9 mg/dL (0.6-1.0); DIRECT BILIRUBIN 0.1 mg/dL (0.0-0.2); GFR 68.3; MAGNESIUM 1.9 mg/dL (1.8-2.4); POTASSIUM 3.3 mmol/L (3.5-5.1); TOTAL BILIRUBIN 0.2 mg/dL (0.2-1.0); TOTAL PROTEIN 6.6 g/dL (6.4-8.2)
[2018-07-08 16:33] LABS: AMPHETAMINE/METHAMPHETAMINE NEG (NEG); BARBITURATES NEG (NEG); BENZODIAZEPINES POS (NEG); CANNABINOIDS NEG (NEG); COCAINE NEG (NEG); METHADONE NEG (NEG); OPIATES POS (NEG); PHENCYCLIDINE NEG (NEG)
[2018-07-08 16:43] LABS: BILIRUBIN,URINE NEG (NEG); CLARITY,URINE CLEAR; COLOR,URINE YELLOW; GLUCOSE,URINE NEG (NEG); NITRITE,URINE NEG (NEG); UROBILINOGEN,URINE 0.2 mg/dL (0.2 mg/dL)
[2018-07-08 16:44] LABS: BACTERIA,URINE FEW /HPF (0-FEW); SQUAMOUS EPITHELIAL CELL,UR FEW /LPF
[2018-07-08 17:13] LABS: % BASOS 1 % (0-3); % EOS 1 % (0-5); % LYMPHS 21 % (24-48); % MONOS 5 % (0-10); % SEGS 72 % (35-66); PLT ESTIMATE ADEQUATE (ADEQUATE)
--- NOTE | 2018-07-08 18:12 | PHYS DOC ---
Past History Past Medical History: Depression, Fibromyalgia, Kidney Stones, Renal Failure Past Surgical History: Appendectomy, Cholecystectomy, Hysterectomy, Other Smoking: Cigarettes Alcohol Use: None Drug Use: None Adult General Chief Complaint Chief Complaint: SUICDAL IDEATION [facility] Patient is a 43 year old female who presents with complaining of suicidal ideation. Patient complaining of suicidal ideation for several years that getting worse since last night. Patient states she has a plan but does not want to tell about her plan area denies homicidal ideation and hallucination. Patient denies history of previous suicidal attempts or mental hospitalization. Patient smokes but denies using drugs and alcohol. Review of Systems Review of Systems Constitutional: Denies fever or chills [] Eyes: Denies change in visual acuity, redness, or eye pain [] HENT: Denies nasal congestion or sore throat [] Respiratory: Denies cough or shortness of breath [] Cardiovascular: No additional information not addressed in HPI [] GI: Denies abdominal pain, nausea, vomiting, bloody stools or diarrhea [] : Denies dysuria or hematuria [] Musculoskeletal: Denies back pain or joint pain [] Integument: Denies rash or skin lesions [] Neurologic: Denies headache, focal weakness or sensory changes [] Endocrine: Denies polyuria or polydipsia [] All other systems were reviewed and found to be within normal limits, except as documented in this note. Allergies Allergies Allergies Coded Allergies Type Severity Reaction Last Updated Verified gabapentin Allergy Intermediate 01/13/18 Yes Physical Exam Physical Exam Constitutional: Well developed, well nourished, mild distress, non-toxic appearance. [] HENT: Normocephalic, atraumatic, oropharynx moist, no oral exudates, nose normal. [] Eyes: PERRLA, EOMI, conjunctiva normal, no discharge. [] Neck: Normal range of motion, no tenderness, supple, no stridor. [] Cardiovascular:Heart rate regular rhythm, no murmur [] Lungs & Thorax: Bilateral breath sounds clear to auscultation [] Abdomen: Bowel sounds normal, soft, no tenderness, no masses, no pulsatile masses. [] Skin: Warm, dry, no erythema, no rash. [] Back: No tenderness, no CVA tenderness. [] Extremities: No tenderness, no cyanosis, no clubbing, ROM intact, no edema. [] Neurologic: Alert and oriented X 3, normal motor function, normal sensory function, no focal deficits noted. [] Psychologic: Affect depressed, judgement normal, suicidal ideation Physical exam by Dr. Barron: Constitutional: Well developed, non-toxic appearance. [] HENT: Normocephalic, atraumatic Eyes: PERRL, EOMI, conjunctiva normal Lungs & Thorax: No respiratory distress Skin: Warm, dry Extremities: No tenderness, ROM intact Neurologic: Alert and oriented X 3, normal motor function, normal sensory function, cerebellar function intact Psychologic: Affect depressed, anxious, reports suicidal ideation Current Patient Data Vital Signs Vital Signs Date Time Temp Pulse Resp B/P (MAP) Pulse Ox O2 Delivery O2 Flow Rate FiO2 07/08/18 15:56 98.1 92 20 96 Lab Results Laboratory Tests Test 07/08/18 15:57 07/08/18 16:08 White Blood Count 15.3 x10^3/uL (4.0-11.0) H Red Blood Count 5.07 x10^6/uL (3.50-5.40) Hemoglobin 13.6 g/dL (12.0-15.5) Hematocrit 41.4 % (36.0-47.0) Mean Corpuscular Volume 82 fL (79-100) Mean Corpuscular Hemoglobin 27 pg (25-35) Mean Corpuscular Hemoglobin Concent 33 g/dL (31-37) Red Cell Distribution Width 15.8 % (11.5-14.5) H Platelet Count 300 x10^3/uL (140-400) Neutrophils (%) (Auto) 67 % (31-73) Lymphocytes (%) (Auto) 26 % (24-48) Monocytes (%) (Auto) 4 % (0-9) Eosinophils (%) (Auto) 1 % (0-3) Basophils (%) (Auto) 1 % (0-3) Neutrophils # (Auto) 10.3 x10^3uL (1.8-7.7) H Lymphocytes # (Auto) 4.0 x10^3/uL (1.0-4.8) Monocytes # (Auto) 0.6 x10^3/uL (0.0-1.1) Eosinophils # (Auto) 0.2 x10^3/uL (0.0-0.7) Basophils # (Auto) 0.2 x10^3/uL (0.0-0.2) Segmented Neutrophils % 72 % (35-66) H Lymphocytes % 21 % (24-48) L Monocytes % 5 % (0-10) Eosinophils % 1 % (0-5) Basophils % 1 % (0-3) Platelet Estimate Adequate (ADEQUATE) Large Platelets Occ Giant Platelets Occ Sodium Level 142 mmol/L (136-145) Potassium Level 3.3 mmol/L (3.5-5.1) L Chloride Level 106 mmol/L (98-107) Carbon Dioxide Level 24 mmol/L (21-32) Anion Gap 12 (6-14) Blood Urea Nitrogen 7 mg/dL (7-20) Creatinine 0.9 mg/dL (0.6-1.0) Estimated GFR (Cockcroft-Gault) 68.3 Glucose Level 179 mg/dL (70-99) H Calcium Level 8.5 mg/dL (8.5-10.1) Magnesium Level 1.9 mg/dL (1.8-2.4) Total Bilirubin 0.2 mg/dL (0.2-1.0) Direct Bilirubin 0.1 mg/dL (0.0-0.2) Aspartate Amino Transferase (AST) 12 U/L (15-37) L Alanine Aminotransferase (ALT) 33 U/L (14-59) Alkaline Phosphatase 154 U/L (46-116) H Total Protein 6.6 g/dL (6.4-8.2) Albumin 3.0 g/dL (3.4-5.0) L Ethyl Alcohol Level < 10 mg/dL (0-10) Urine Collection Type Void Urine Color Yellow Urine Clarity Clear Urine pH 6.0 Urine Specific [place] 1.015 Urine Protein Neg (NEG-TRACE) Urine Glucose (UA) Neg mg/dL (NEG) Urine Ketones (Stick) Neg mg/dL (NEG) Urine Blood Trace (NEG) Urine Nitrite Neg (NEG) Urine Bilirubin Neg (NEG) Urine Urobilinogen Dipstick 0.2 mg/dL (0.2 mg/dL) Urine Leukocyte Esterase Neg (NEG) Urine RBC 1-2 /HPF (0-2) Urine WBC 1-4 /HPF (0-4) Urine Squamous Epithelial Cells Few /LPF Urine Bacteria Few /HPF (0-FEW) Urine Mucus Slight /LPF Urine Opiates Screen Pos (NEG) Urine Methadone Screen Neg (NEG) Urine Barbiturates Neg (NEG) Urine Phencyclidine Screen Neg (NEG) Urine Amphetamine/Methamphetamine Neg (NEG) Urine Benzodiazepines Screen Pos (NEG) Urine Cocaine Screen Neg (NEG) Urine Cannabinoids Screen Neg (NEG) Urine Ethyl Alcohol Neg (NEG) EKG EKG [] Radiology/Procedures Radiology/Procedures [] Course & Med Decision Making Course & Med Decision Making Pertinent Labs reviewed. (See chart for details) Evaluation of patient in ER showed 43-year-old female patient with suicidal ideation and plan. Patient was evaluated by tele psych and had criteria for inpatient admission. Waiting for available bed accepting hospital. Patient's care transferred to Dr. Barron at 1815. BEATRICE: @181: Sign out received from Dr. Spann for patient with reported suicidal ideation and plan. Awaiting accepting psych facility and physician. Labs reviewed. Potassium replacement previously ordered. @2144: Patient accepted at [facility]. Patient stable for transfer for inpatient psychiatric admission Discussed findings and plan with patient and family, who acknowledge understanding and agreement. Patient did report some increased anxiety. 0.5mg Ativan PO provided. Dragon Disclaimer Dragon Disclaimer This electronic medical record was generated, in whole or in part, using a voice recognition dictation system. Departure Departure: Impression: Primary Impression: Suicidal ideation Additional Impression: Hypokalemia Disposition: 65 XFER TO PSYCH HOSP/UNIT ([facility]) Condition: STABLE Referrals: ROBBY PERLA MD (PCP) Problem Qualifiers TRISTAN SPANN MD Jul 08, 2018 18:12 OMAR BARRON DO Jul 08, 2018 22:09
[2018-07-08] MEDS ORDERED: POTASSIUM CHLORIDE 20 MEQ TABLET.ER. PO ONE (18:15)
[2018-07-08] MEDS ORDERED: POTASSIUM CHLORIDE 20 MEQ/15 ML ORAL LIQUID. ONE (20:00)
[2018-07-08 21:51] VITALS: BP 110/67
[2018-07-08] MEDS ORDERED: LORazepam 1 MG TABLET PO ONE (22:30)
== END 2018-07-08 23:21 ==
LOC: ER 15:31
DX: R45.851 Suicidal ideations (principal); E87.6 Hypokalemia; F32.9 Major depressive disorder, single episode, unspecified; M79.7 Fibromyalgia; F17.210 Nicotine dependence, cigarettes, uncomplicated; Z87.442 Personal history of urinary calculi; Z88.8 Allergy status to other drugs, medicaments and biological substances
CPT/HCPCS: 36415; 80048; 80076; 80307; 81001; 83735; 85007; 85025; 99285; G0480; G0479